=== PATIENT | male | born 1970 | race Caucasian/White ===

== ENCOUNTER 2018-01-18 19:14 | Emergency (ER) | payer BC, OTHER ==
[2018-01-18] MEDS ORDERED: NS 500 ML IV ONE (19:27)
[2018-01-18] MEDS ORDERED: methylPREDNISolone SOD SUCC 125 MG/2 ML VIAL IVP ONE (19:28)
[2018-01-18] MEDS ORDERED: RANITIDINE 50 MG/2 ML VIAL IVP ONE (19:28)
--- NOTE | 2018-01-18 20:14 | EDPHY ---
H & P Time Seen by Provider: 01/18/18 19:24 HPI/ROS: HPI Allergic reaction. 47-year-old male by private vehicle with and daughter. This patient was on a walk at approximately 6:30 p.m.. He felt something sting him in the lower posterior calf area on the left side. He reports that he had fairly significant pain localized to that area at that time. About 15 min later he felt a tingling sensation in his hands and then developed a red rash all over his body. Denied any shortness of breath. No difficulty swallowing. No sensation of his throat closing up. He reports that by the time he got to the emergency department he started feeling better. He has had bee stings in the past but has never had a reaction like this. Denies any other significant environmental allergies or food allergies. ROS: Constitutional: No fever, no chills. As above. Eyes: No discharge. No changes in vision. ENT: No sore throat. No nasal congestion or rhinorrhea. Respiratory: No cough. No shortness of breath. Cardiac: No chest pain, no palpitations. Gastrointestinal: No abdominal pain, no vomiting, no diarrhea. Genitourinary: No hematuria. No dysuria or increased frequency with urination. Musculoskeletal: No back pain. No neck pain. No myalgias or arthralgias. Skin: As above. Neurological: No headache. No focal weakness or altered sensation. Past medical history: No significant past medical history. He is not on any prescription medications. Social history: Here with his and daughter. Nonsmoker. No alcohol. Physical Exam: General Appearance: Alert, no distress. This patient is responding to questions appropriately and in full sentences. This patient appears well- hydrated and well-nourished. Eyes: Pupils equal and round no pallor or injection. No lid edema, erythema or injection. ENT, Mouth: Mucous membranes are moist. The pharyngeal tissues are unremarkable. No edema or swelling. No asymmetry suggestive of abscess. No erythema or exudates. No stridor on auscultation of his neck. No voice changes. Respiratory: There are no retractions, lungs are clear to auscultation with good air movement bilaterally. Cardiovascular: Regular rate and rhythm. No murmur. Gastrointestinal: Abdomen is soft and nontender, no masses, bowel sounds normal. No focal tenderness at McBurney's point. No Morgan sign. Neurological: Motor sensory function is grossly intact. Cranial nerves are normal. Gait is normal. Skin: Warm and dry, diffuse erythematous, maculopapular, blanching urticarial rash over his extremities and trunk up through his neck and involving his lower face. No petechiae. Musculoskeletal: Neck is supple and nontender. Extremities are symmetrical. All joints range without pain or impingement. Psychiatric: No agitation. No depression. Database: EKG: Imaging: Procedures: Emergency department course: Triage vital signs reviewed. He is mildly tachycardic. Vital signs are otherwise normal. IV was placed. He was started on IV normal saline with 500 cc to 1 L to be given over the next hour. He was initially given 125 mg of IV Solu-Medrol, 50 mg of IV Benadryl and 50 mg of IV ranitidine. 8:10 p.m., patient re-evaluated. His rash has partially dissipated. He states that he is feeling much better. Tachycardia resolved. Vital signs reviewed and are normal. 9:20 p.m., the patient was re-evaluated. Resting comfortably at this time. His rash is completely resolved. Repeat pharyngeal exam is normal. Lungs are clear. He has no complaints. He feels comfortable going home and I feel he is safe for discharge. Follow-up and return to emergency department precautions have been discussed with him. I will prescribe him antihistamines in a short course of steroids over the next couple of days. All of his questions were answered. He was discharged in good condition. Differential Diagnosis: The differential diagnosis on this patient includes but is not limited to allergic reaction. Anaphylactic shock unlikely. This represents a partial list of diagnoses considered. These considerations are based on history, physical exam, past history, reassessment and diagnostic testing. Smoking Status: Never smoked Constitutional: Initial Vital Signs Temperature (C) 36.6 C 01/18/18 19:18 Heart Rate 108 H 01/18/18 19:18 Respiratory Rate 16 01/18/18 19:18 Blood Pressure 104/61 01/18/18 19:18 O2 Sat (%) 97 01/18/18 19:18 O2 Delivery Mode Room Air Allergies/Adverse Reactions: No Known Allergies Allergy (Verified 01/18/18 19:22) Home Medications: Medication Instructions Recorded No Medications [NO HOME 1 ea [facility] 02/22/11 MEDICATIONS] predniSONE [prednisone 20mg (RX)] 60 mg PO DAILY #9 tab 01/18/18 Medical Decision Making - Data Points Medications Given: Discontinued Medications Diphenhydramine HCl (Benadryl Injection) 50 mg IVP EDNOW ONE Stop: 01/18/18 19:29 Last Admin: 01/18/18 19:38 Dose: 50 mg Sodium Chloride (Ns) 500 mls @ 0 mls/hr IV EDNOW ONE; Wide Open PRN Reason: Protocol Stop: 01/18/18 19:28 Last Admin: 01/18/18 19:38 Dose: 500 mls Methylprednisolone Sodium Succinate (Solu-Medrol) 125 mg IVP EDNOW ONE Stop: 01/18/18 19:29 Last Admin: 01/18/18 19:38 Dose: 125 mg Ranitidine HCl (Zantac) 50 mg IVP EDNOW ONE Stop: 01/18/18 19:29 Last Admin: 01/18/18 19:38 Dose: 50 mg Departure - Departure Disposition: Home, Routine, Self-Care Clinical Impression: Insect bite, Allergic reaction Condition: Good Instructions: General Allergic Reaction (ED) Additional Instructions: Read and follow provided instructions. Follow-up with your primary care physician tomorrow for re-evaluation. Benadryl: 50 mg every 6-8 hours for the next 24-48 hours. Pepcid: 40 mg twice daily once in the morning and once in the evening for the next 24-48 hours. Prednisone as prescribed. Return to the emergency department for worsening symptoms, worsening rash, any sensation of swelling in your throat or difficulty swallowing, wheezing or other serious concerns. Referrals: NONE *PRIMARY CARE P,. [Primary Care Provider] - As per Instructions Prescriptions: predniSONE [prednisone 20mg (RX)] 60 mg PO DAILY #9 tab
[2018-01-18 20:30] VITALS: BP 105/64
== END 2018-01-18 21:35 | disposition home or self-care (01) ==
DX: S80.862A Insect bite (nonvenomous), left lower leg, initial encounter (principal); T78.40XA Allergy, unspecified, initial encounter; Y93.K1 Activity, walking an animal; Y92.9 Unspecified place or not applicable
CPT/HCPCS: 96374; J1200; J2780; J2930